=== PATIENT | female | born 1995 | race Caucasian/White ===

== ENCOUNTER 2018-04-20 20:04 | Emergency (ER) | payer SELFPAY ==
[2018-04-20 20:14] VITALS: BP 149/91
--- NOTE | 2018-04-20 20:25 | UC ---
Complaint Female HPI - HPI Summary HPI Summary: patient has rlq with nausea all day today---she did have some heavy menstrual flow today---unsure if they are related ---- - History Of Current Complaint Chief Complaint: UCGU Stated Complaint: PERSONAL Time Seen by Provider: 04/20/18 20:23 Hx Obtained From: Patient Hx Last Menstrual Period: March 20, 2018 ?: No Onset/Duration: Sudden Onset, Lasting Days - day number 2, Still Present Timing: Constant Severity Initially: Mild Severity Currently: Moderate Character: Cramping - rlq Aggravating Factor(s): Nothing Alleviating Factor(s): Nothing Associated Signs And Symptoms: Positive: Nausea Related Hx: - 0, Para - 0 - Allergies/Home Medications Allergies/Adverse Reactions: Allergies Allergy/AdvReac Type Severity Reaction Status Date / Time No Known Allergies Allergy Unverified 04/20/18 20:14 Home Medications: Home Medications Fluticasone NASAL SPRAY 50MCG* [Flonase NASAL SPRAY 50MCG*] 2 spray BOTH NARES DAILY 04/20/18 [History Confirmed 04/20/18] PMH/Surg Hx/FS Hx/Imm Hx Previously Healthy: No - PCOS - Surgical History Surgical History: None - Family History Known Family History: Positive: None - Social History Occupation: Employed Full-time Lives: With Family Alcohol Use: None Substance Use Type: Marijuana Smoking Status (MU): Light Every Day Tobacco Smoker Review of Systems Constitutional: Negative Skin: Negative Eyes: Negative ENT: Negative Respiratory: Negative Cardiovascular: Negative Gastrointestinal: Abdominal Pain - RLQ, Nausea Genitourinary: Negative Motor: Negative Neurovascular: Negative Musculoskeletal: Negative Neurological: Negative Psychological: Negative Is Patient Immunocompromised?: No All Other Systems Reviewed And Are Negative: Yes Physical Exam Triage Information Reviewed: Yes Appearance: Well-Appearing, No Pain Distress, Well-Nourished Vital Signs: Initial Vital Signs Temp 97.7 F 04/20/18 20:10 Pulse 89 04/20/18 20:10 Resp 12 04/20/18 20:10 BP 149/91 04/20/18 20:10 Pulse Ox 100 04/20/18 20:10 Vital Signs Reviewed: Yes Eye Exam: Normal Eyes: Positive: Conjunctiva Clear ENT Exam: Normal ENT: Positive: Normal ENT inspection, Hearing grossly normal. Negative: Nasal congestion, Trismus, Muffled voice, Hoarse voice Dental Exam: Normal Neck exam: Normal Neck: Positive: Supple, Nontender Respiratory Exam: Normal Respiratory: Positive: Chest non-tender, No respiratory distress, No accessory muscle use Cardiovascular Exam: Normal Cardiovascular: Positive: RRR, Pulses Normal, Brisk Capillary Refill Abdominal Exam: Other Abdomen Description: Positive: No Organomegaly, Soft, Other: - RLQ pain. Negative: CVA Tenderness (R), CVA Tenderness (L), Distended, Guarding, Peritoneal Signs Bowel Sounds: Positive: Present Musculoskeletal Exam: Normal Musculoskeletal: Positive: Strength Intact, ROM Intact, No Edema Neurological Exam: Normal Neurological: Positive: Alert, Muscle Tone Normal Psychological Exam: Normal Skin Exam: Normal Diagnostics - Laboratory Diagnostic Studies Completed/Ordered: ua-+2 blood, preg (-) Complaint Female Dx - Course Course Of Treatment: plan -d/c patient from urgent care for follow up at [facility] Emergency Department - Differential Dx/Diagnosis Provider Diagnoses: RLQ pain, DUB, elevated blood pressure related to acute presentation Discharge - Sign-Out/Discharge Documenting (check all that apply): Patient Departure All imaging exams completed and their final reports reviewed: No Studies - Discharge Plan Condition: Stable Disposition: HOME-RECOMMEND TO ED Patient Education Materials: Dysfunctional Uterine Bleeding (ED), Acute Abdominal Pain (ED), Hypertension (ED) Referrals: Alvaro Gonzalez [Primary Care Provider] - - Billing Disposition and Condition Condition: STABLE Disposition: Home-Recommend to ED
== END 2018-04-20 20:51 | disposition home health service (06) ==
LOC: UCEAST 20:04
DX: R10.31 Right lower quadrant pain (principal); N93.8 Other specified abnormal uterine and vaginal bleeding; R03.0 Elevated blood-pressure reading, without diagnosis of hypertension; F17.210 Nicotine dependence, cigarettes, uncomplicated
CPT/HCPCS: 81003; 84702; 99212; G0463

== ENCOUNTER 2018-04-20 21:03 | Emergency (ER) | payer SELFPAY ==
[2018-04-20 22:15] LABS: ABS Basophils 0.2 10^3/ul (0-0.2); ABS Eosinophils 0.7 10^3/ul (0-0.6); ABS Lymphocytes 4.2 10^3/ul (1.0-4.8); ABS Monocytes 0.7 10^3/ul (0-0.8); ABS Neutrophils 7.9 10^3/ul (1.5-7.7); ABS Nucleated RBC 0 10^3/ul; Eosinophil % 5.2 % (0-6); Hematocrit 43 % (35-47); Hemoglobin 14.7 g/dl (12.0-16.0); Lymphocyte % 30.6 % (25-47); Mean Corpuscular HGB Conc 35 g/dl (31-36); Mean Corpuscular Hemoglobin 32 pg (27-31); Mean Corpuscular Volume 92 fL (80-97); Mean Platelet Volume 8.7 um3 (7.4-10.4); Nucleated Red Blood Cells % 0.1; Platelet Count 248 10^3/ul (150-450); Red Blood Count 4.63 10^6/ul (4.00-5.40); Red Cell Distribution Width 13 % (10.5-15); White Blood Count 13.6 10^3/ul (3.5-10.8)
--- NOTE | 2018-04-21 00:32 | RAD ---
EXAM: US Pelvis, Transvaginal CLINICAL HISTORY: 22 years old, female; Signs and symptoms; Menstruation abnormalities; Excessive menstruation; Additional info: Mentral irregularity TECHNIQUE: Real-time transvaginal pelvic ultrasound (complete) with image documentation. Transvaginal imaging was used for better evaluation of the endometrium and adnexa. COMPARISON: No relevant prior studies available. FINDINGS: Uterus/cervix: Anteverted retroflexed. Measures 7.1 x 3.9 x 2.8 cm (40 cc). No myometrial masses. Secretory phase endometrium measuring 1.3 cm. Right ovary: Right ovary measures 3.3 x 2.2 x 2.0 cm (7.6 cc). Normal size and echogenicity with no masses. Multiple small peripherally oriented follicles with increased central parenchyma. Normal arterial and venous waveforms. Left ovary: Left ovary measures 3.0 x 2.1 x 1.9 cm (6.3 cc). Normal size and echogenicity with no masses. Multiple small peripherally oriented follicles with increased central parenchyma. Normal arterial and venous waveforms. Normal blood flow. Free fluid: No free fluid. Bladder: Empty bladder which cannot be evaluated with this probe. IMPRESSION: Findings of known polycystic ovarian disease. No additional findings to correlate with patient's symptomatology.
--- NOTE | 2018-04-21 05:46 | ED ---
GI/ HPI - HPI Summary HPI Summary: Pt is a 22 year old female who initially went to the urgent care with vaginal complaints. She has had her period for a while, and she thought it was stopping. Last night, she felt really nauseous and was still nauseous today with some dizziness. Around 1400, the nausea was worse w/ some dry heaving, and around 1430 she felt like she started her period, and when she got into the bathroom she discovered that she had heavy bleeding. After she went home and went to change her tampon, there was no blood. Currently, she is mildly nauseous. The pt denies diarrhea and is not on control. The pt has a hx of PCOS. - History of Current Complaint Chief Complaint: EDOBProblems Stated Complaint: OB PROBLEMS Hx Obtained From: Patient Hx Last Menstrual Period: March 20, 2018 Onset/Duration: Started Days Ago Severity: Mild Current Severity: Mild Pain Intensity: 0 Associated Signs and Symptoms: Positive: Dizziness, Nausea. Negative: Diarrhea - Allergy/Home Medications Allergies/Adverse Reactions: Allergies Allergy/AdvReac Type Severity Reaction Status Date / Time No Known Allergies Allergy Unverified 04/20/18 21:10 PMH/Surg Hx/FS Hx/Imm Hx Previously Healthy: No Cardiovascular History: Reports: Hx Hypertension Denies: Other Cardiovascular Problems/Disorders History: Reports: Other Problems/Disorders - polycystic ovarian syndrome Infectious Disease History: No Infectious Disease History: Denies: Traveled Outside the [place] in Last 30 Days - Family History Known Family History: Positive: None - Social History Alcohol Use: None Substance Use Type: Reports: Marijuana Smoking Status (MU): Light Every Day Tobacco Smoker Review of Systems Negative: Fever Positive: Nausea. Negative: Diarrhea Neurological: Other - dizziness All Other Systems Reviewed And Are Negative: Yes Physical Exam - Summary Physical Exam Summary: Appearance: Well-appearing, Well-nourished, lying in bed comfortable Skin: Warm, dry, no obvious rash Eyes: sclera anicteric, no conjunctival pallor ENT: mucous membranes moist Neck: deferred Respiratory: No signs of respiratory distress Cardiovascular: Appears well perfused, pulses are nml Abdomen: deferred Musculoskeletal: Moving all 4 extremities without obvious discomfort Neurological: Awake and alert, mentation is normal, speech is fluent and appropriate Psychiatric: affect is normal, does not appear anxious or depressed Triage Information Reviewed: Yes Vital Signs On Initial Exam: Initial Vitals Temp Pulse Resp BP Pulse Ox 98.7 F 86 18 144/90 100 04/20/18 21:06 04/20/18 21:06 04/20/18 21:06 04/20/18 21:06 04/20/18 21:06 Vital Signs Reviewed: Yes Diagnostics - Vital Signs Vital Signs Temp Pulse Resp BP Pulse Ox 04/20/18 23:06 98.6 F 73 16 140/84 99 04/20/18 21:06 98.7 F 86 18 144/90 100 - Laboratory Lab Results: Lab Results 04/20/18 04/20/18 Range/Units 22:03 22:03 WBC 13.6 H (3.5-10.8) 10^3/ul RBC 4.63 (4.00-5.40) 10^6/ul Hgb 14.7 (12.0-16.0) g/dl Hct 43 (35-47) % MCV 92 (80-97) fL MCH 32 H (27-31) pg MCHC 35 (31-36) g/dl RDW 13 (10.5-15) % Plt Count 248 (150-450) 10^3/ul MPV 8.7 (7.4-10.4) um3 Neut % (Auto) 57.9 (38-83) % Lymph % (Auto) 30.6 (25-47) % [place] % (Auto) 4.9 (0-7) % Eos % (Auto) 5.2 (0-6) % Baso % (Auto) 1.4 (0-2) % Absolute Neuts (auto) 7.9 H (1.5-7.7) 10^3/ul Absolute Lymphs (auto) 4.2 (1.0-4.8) 10^3/ul Absolute Monos (auto) 0.7 (0-0.8) 10^3/ul Absolute Eos (auto) 0.7 H (0-0.6) 10^3/ul Absolute Basos (auto) 0.2 (0-0.2) 10^3/ul Absolute Nucleated RBC 0 10^3/ul Nucleated RBC % 0.1 Blood Type A Negative Result Diagrams: 04/20/18 22:03 Lab Statement: Any lab studies that have been ordered have been reviewed, and results considered in the medical decision making process. GIGU Course/Dx - Diagnoses Provider Diagnoses: Polycystic ovarian syndrome Discharge - Sign-Out/Discharge Documenting (check all that apply): Patient Departure - Discharge Plan Condition: Stable Disposition: HOME Referrals: Alvaro Gonzalez [Primary Care Provider] - - Attestation Statements Document Initiated by Scribe: Yes Documenting Scribe: Mel Christopher Provider For Whom Scribe is Documenting (Include Credential): Mayito Rivas MD. Scribe Attestation: Mel Lynn, jadaed for Mayito Rivas MD. on 04/21/18 at 0545.
[2018-04-21 06:39] VITALS: BP 142/71
== END 2018-04-21 01:50 | disposition home or self-care (01) ==
LOC: ED 21:03
DX: E28.2 Polycystic ovarian syndrome (principal); Z72.0 Tobacco use; I10 Essential (primary) hypertension
CPT/HCPCS: 36415; 76830; 84702; 85025; 86900; 86901; 99282